=== PATIENT | male | born 1965 | race Caucasian/White ===

== ENCOUNTER 2017-01-04 14:10 | Emergency (ER) | payer OTHER ==
[2017-01-04 14:21] VITALS: TEMP 98.1
[2017-01-04] MEDS ORDERED: LETS SOLN TOPICAL 1 EA SYR TP ONE (14:21)
--- NOTE | 2017-01-04 15:55 | UCPHY ---
H & P Time Seen by Provider: 01/04/17 15:38 Patient Type: New HPI/ROS: CHIEF COMPLAINT: Facial trauma HISTORY OF PRESENT ILLNESS: 51-year-old male was skiing when he fell striking his face into the snow. Patient has a superficial laceration on his left cheek which he thinks is from a sunglasses. He also has an abrasion across the nasal bridge and right forehead. He was wearing a helmet. No loss of consciousness. No numbness or tingling in his arms or legs. No difficulty breathing. No chest pain. No abdominal pain. No shortness of breath. No visual changes. After the incident patient was able [place] where he had a dressing placed on his laceration. He has developed a mild headache which has been worsening. No vomiting. No confusion. No gait instability. REVIEW OF SYSTEMS: Aside from elements discussed in the HPI, a comprehensive 10-point review of systems was reviewed and is negative. PAST MEDICAL HISTORY: Denies. SOCIAL HISTORY: Patient is here with his who was skiing with him. VITAL SIGNS: Reviewed by me; see NN. GENERAL: Well-developed, well-nourished, in no acute distress. HEENT: Head: Atraumatic, normocephalic. Face: Superficial 1 cm laceration over the left cheek. Very superficial small abrasions over the nasal bridge. Scattered punctate abrasions on the right forehead. PERRL, EOMI, no nystagmus. No pain with upward gaze. No palpable deformity of the zygoma on the left. Oropharynx: No trauma, normal occlusion. No dental injury noted. Neck: No midline tenderness to palpation. Patient does report some discomfort in the left paraspinous region, is palpably tender over these muscles. CHEST: Nontender, no subcutaneous air palpable. LUNGS: Clear to auscultation bilaterally, breath sounds are equal. CARDIAC: Regular rate and rhythm, no rubs, murmurs or gallops. ABDOMEN: Soft, nontender, nondistended, bowel sounds normal. BACK: No CVA tenderness, no spinal tenderness. EXTREMITIES: No trauma noted, normal range of motion. PULSES: 2+ and equal throughout. NEURO: Alert and oriented x3, cranial nerves are intact throughout, normal motor , normal sensation. SKIN: Warm and dry, no rash. Smoking Status: Never smoked Constitutional: Initial Vital Signs Temperature (C) 36.7 C 01/04/17 14:18 Heart Rate 63 01/04/17 14:18 Respiratory Rate 16 01/04/17 14:18 Blood Pressure 117/54 L 01/04/17 14:18 O2 Sat (%) 96 01/04/17 14:18 O2 Delivery Mode Room Air Allergies/Adverse Reactions: No Known Allergies Allergy (Verified 01/04/17 14:21) Home Medications: Medication Instructions Recorded NK [No Known Home Meds] 01/04/17 Medical Decision Making Procedures: Procedure: Laceration repair. The 1 and 1/2 cm laceration on the right cheek was anesthetized using small amount of lidocaine with epinephrine. The wound was cleaned and irrigated per nursing and tech documentation. Laceration is quite superficial. Bleeding is well controlled. There were no deep structures involved. The wound was repaired with Dermabond. The wound repair was simple. The procedure was performed by myself. Patient is aware the laceration will have a scar. ED Course/Re-evaluation: Discussed imaging studies with the patient including offer for imaging studies of the patient's cervical spine. With no midline tenderness and some tenderness in the musculature on the left side, the patient would prefer not to have the C-spine image today. Also discussed possibility of bony fractures to the face. I do not believe the patient has any obvious evidence of a zygoma fracture. There is no deformity. Extraocular movements are intact. Patient's laceration was infiltrated and closed with Dermabond. Patient does not meet criteria for CT scanning of his head. He is comfortable being discharged home with his with close head injury instructions. Differential Diagnosis: Differential diagnosis of this patient's injury was considered including but not limited to intracranial injury, facial fracture, nasal fracture, cervical spine injury, lacerations, abrasions, contusions. - Data Points Medications Given: Discontinued Medications Octyl Cyanoacrylate (Dermabond) 1 each TP EDNOW ONE Stop: 01/04/17 16:03 Last Admin: 01/04/17 16:14 Dose: 1 each Tetracaine/Epinephrine/Lidocaine (Lets Soln Topical) 1 ea TP EDNOW ONE Stop: 01/04/17 14:22 Last Admin: 01/04/17 15:08 Dose: 1 ea Departure - Departure Disposition: Home, Routine, Self-Care Clinical Impression: Closed head injury Qualifiers: Encounter type: initial encounter Qualified Code(s): S09.90XA - Unspecified injury of head, initial encounter Laceration of cheek Qualifiers: Encounter type: initial encounter Laterality: left Qualified Code(s): S01.412A - Laceration without foreign body of left cheek and temporomandibular area, initial encounter Contusion Qualifiers: Encounter type: initial encounter Contusion area: head Contusion of head detail : other part of head Qualified Code(s): S00.83XA - Contusion of other part of head, initial encounter Condition: Good Instructions: Concussion (ED), Head Injury (ED), Skin Adhesive Care (ED), Facial Contusion (ED) Additional Instructions: Please use ibuprofen or Tylenol as needed for headache or pain in the face, cheek, and lateral neck. Keep the wound clean and dry. Watch for signs of worsening head injury. Please follow up with the primary care physician if you have any concerns regarding bony injuries to the face. Referrals: MANJINDER FERNANDEZ [Other] - As per Instructions - PQRS PQRS Measurement: Not applicable
[2017-01-04] MEDS ORDERED: SKIN ADHESIVE (DERMABOND) 1 EACH TP ONE ×2 (16:02→16:13)
[2017-01-04 16:23] VITALS: PULSE 82; RESP 20; O2SAT 97
[2017-01-04 16:26] VITALS: BP 120/84
== END 2017-01-04 16:23 | disposition home or self-care (01) ==
LOC: CED 14:10
PROC: 0HQ1XZZ Repair Face Skin, External Approach (ICD-10-PCS; principal; 2017-01-04)
DX: S01.412A Laceration without foreign body of left cheek and temporomandibular area, initial encounter (principal); S00.31XA Abrasion of nose, initial encounter; S00.83XA Contusion of other part of head, initial encounter; Y93.23 Activity, snow (alpine) (downhill) skiing, snowboarding, sledding, tobogganing and snow tubing
CPT/HCPCS: 12011-PO; 99203-PO; G0463-PO